=== PATIENT | female | born 1940 | race Two or more races ===

== ENCOUNTER 2021-11-07 05:55 | Day surgery (SDC) | payer OTHER ==
[~2021-11-07 05:55] MED LIST: ATACAND HCT 321 EAC1 PO; CRESTOR40 MG PO; D3 + K2 DOTS 11 EACH PO; HUMALOG100 UNIT/2; INVOKANA100 MG PO; LANTUS SOL100 UNIT/1; PLAVIX75 MG PO; TOPROL XL50 M1 PO
== END 2021-11-07 13:05 | disposition home or self-care (01) ==
LOC: CIR.AMB 05:55
PROVIDERS: ATTEND Surgery Surgery of the Hand
DX: M72.0 Palmar fascial fibromatosis [Dupuytren] (principal); I25.10 Atherosclerotic heart disease of native coronary artery without angina pectoris; I10 Essential (primary) hypertension; I25.2 Old myocardial infarction; Z95.1 Presence of aortocoronary bypass graft; Z95.5 Presence of coronary angioplasty implant and graft; E11.9 Type 2 diabetes mellitus without complications; G50.0 Trigeminal neuralgia; Z79.4 Long term (current) use of insulin